=== PATIENT | female | born 1965 | race Caucasian/White ===

== ENCOUNTER 2024-11-13 10:14 | Emergency (ER) | payer SELFPAY ==
[2024-11-13] VITALS (29 sets, daily range): BP systolic 90–159; BP diastolic 42–101; BMI 26.9
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
[2024-11-13 11:17] LABS: Hematocrit 46.9 % (37.0-47.0); Hemoglobin 16.1 g/dL (12.0-16.0); Mean Corp Hgb Conc. 34.3 g/dL (33.0-37.0); Mean Corpuscular Volume 92.5 fL (81.0-99.0); Nucleated Red Blood Cells % 0 %; Platelet Count 190 10^3/uL (130-400); Red Cell Dist. Width 13.7 % (11.5-14.5)
[2024-11-13 11:29] LABS: ALT (SGPT) 33 U/L (0-35); AST (SGOT) 28 U/L (14-36); Albumin 4.4 g/dl (3.5-5.0); Alkaline Phosphatase 72 U/L (38-126); Blood Urea Nitrogen 10 mg/dl (7-17); Calcium 9.5 mg/dl (8.4-10.2); Carbon Dioxide 22 mmol/L (22-30); Chloride 109 mmol/L (98-107); Estimated Creatinine Clearance 80 ml/min; Glucose 77 mg/dl (70-99); Potassium 4.1 mmol/L (3.5-5.1); Sodium 143 mmol/L (135-145); Total Protein 7.2 g/dl (6.3-8.2); eGFR > 60.00
[2024-11-13] MEDS: NSS 1000 IV (12:03)
[2024-11-13 14:22] LABS: Troponin I < 0.012 ng/ml
[2024-11-13] MEDS: TORADOL 15 MG IV (14:39)
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
[2024-11-13] MEDS: ADACEL 0.5 ML IM (19:08)
[2024-11-13] MEDS: TYLENOL 1000 MG PO (19:23)
[2024-11-14 01:00] VITALS: BP 127/76
== END 2024-11-14 02:38 ==
LOC: EMR 10:14
PROVIDERS: Physician Assistant; CONSULT PHYSICIAN Psychiatry & Neurology Psychiatry; EMERGENCY PHYSICIAN Student in an Organized Health Care Education/Training Program; FAMILY PHYSICIAN Family Medicine
DX: T50.992A Poisoning by other drugs, medicaments and biological substances, intentional self-harm, initial encounter (principal); Y92.9 Unspecified place or not applicable; S22.22XA Fracture of body of sternum, initial encounter for closed fracture; S22.42XA Multiple fractures of ribs, left side, initial encounter for closed fracture; S63.075A Dislocation of distal end of left ulna, initial encounter; V43.52XA Car driver injured in collision with other type car in traffic accident, initial encounter; Y92.410 Unspecified street and highway as the place of occurrence of the external cause; F32.A Depression, unspecified; I10 Essential (primary) hypertension; Z65.3 Problems related to other legal circumstances
CPT/HCPCS: 99285; 25675; 96374; 96372; 96361; 70450; 71260; 72125; 73110; 74177; 80053; 80306; 80307; 82077; 84484; 85025; 86850; 86900; 86901; 90715; 93005; Q9967